=== PATIENT | male | born 1970 | race Two or more races ===

== ENCOUNTER 2023-11-05 21:03 | Emergency (ER) | payer MEDICAID, OTHER ==
[~2023-11-05] VITALS: Ht 165.1 cm; Wt 77.0 kg
[2023-11-05 21:30] LABS: Basophils # (auto) 0 10 ^3/uL (0-0.2); Basophils % (auto) 0.2 % (0.0-2.0); Eosinophils # (auto) 0 10 ^3/uL (0-0.8); Eosinophils % (auto) 0.1 % (0.0-7.0); Hematocrit 44.1 % (41.0-53.0); Lymphocytes # (auto) 1.2 10 ^3/uL (0.4-5.4); Lymphocytes % (auto) 21.6 % (10.0-50.0); Mean Corpuscular Hemoglobin 31.8 pg (28.0-32.0); Mean Corpuscular Hgb Conc. 36.3 g/dL (32.0-36.0); Mean Corpuscular Volume 87.8 fL (80.0-100.0); Monocytes # (auto) 0.5 10 ^3/uL (0-1.3); Monocytes % (auto) 8.4 % (0.0-12.0); Neutrophils # (auto) 3.8 10 ^3/uL (1.6-8.6); Neutrophils % (auto) 69.7 % (37.0-80.0); Nucleated Red Blood Cells % 0.1 %; Red Blood Cells 5.03 10^6/uL (4.5-5.90); White Blood Cell 5.5 10^3/uL (4.4-10.8)
[2023-11-05] MEDS: SODIUM CHLORIDE 0.9% 1,000 ML IV ONE (21:34)
[2023-11-05] MEDS: PANTOPRAZOLE 40 MG/10 ML VIAL INJ IV ONE (21:35)
[2023-11-05] MEDS: ONDANSETRON HCL 4 MG/2 ML VIAL IV ONE (21:35)
[2023-11-05 21:42] VITALS: PULSE 107; RESP 16; O2SAT 96
[2023-11-05 22:00] LABS: Alanine Aminotransferase 40 U/L (7-40); Albumin 4.4 g/dL (3.2-4.8); Alkaline Phosphatase 70 U/L (46-116); Anion Gap 13 (5-15); Aspartate Aminotransferase 41 U/L (13-40); BUN/Creatinine Ratio 8.6 (10.0-20.0); Bilirubin, Total 1.1 mg/dL (0.2-1.0); Blood Alcohol 155.8 mg/dL (<10); Blood Urea Nitrogen 6 mg/dL (9-23); Calcium 8.5 mg/dL (8.7-10.4); Carbon Dioxide 22 mmol/L (20-30); Chloride 98 mmol/L (98-107); Glucose 111 mg/dL (74-106); Potassium 3.6 mmol/L (3.5-5.1); Sodium 133 mmol/L (136-145); Total Protein 6.8 g/dL (5.7-8.2)
[2023-11-05] MEDS: LORazepam 2MG/ML-1ML VIAL IV ONE (23:52)
[2023-11-06] MEDS: MORPHINE SULFATE 4 MG/ML SYR/VIAL IV ONE (00:15)
[2023-11-06] MEDS: MAALOX PLUS or MAALOX 30 ML PO ONE (00:32)
[2023-11-06] MEDS: LIDOCAINE VISCOUS 2% 15ML UD PO ONE (00:32)
[2023-11-06] MEDS: DONNATAL 5ml ORAL Elix (BELLADONNA ALK-PHENOBARB) PO ONE (00:32)
[2023-11-06 02:22] VITALS: BP 126/85; PULSE 71; RESP 20; TEMP 98.8; O2SAT 97
[2023-11-06] MEDS: chlordiazePOXIDE HCL 25 MG CAP PO ONE (02:27)
== END 2023-11-06 02:28 | disposition home or self-care (01) ==
LOC: EDUNIT# 21:03 → EDBD 21:03 → ER 21:03
DX: K29.20 Alcoholic gastritis without bleeding (principal); F10.129 Alcohol abuse with intoxication, unspecified; F17.210 Nicotine dependence, cigarettes, uncomplicated; Y90.0 Blood alcohol level of less than 20 mg/100 ml
CPT/HCPCS: 36415; 71045; 80053; 80320; 83880; 84484; 85025; 93005; 96361; 96374; 96375; 99285; J2060; J2405; J2470; J7030